=== PATIENT | male | born 1935 | race Hispanic/Latino ===

== ENCOUNTER 2017-10-02 08:19 | Outpatient (CLI) | payer MEDICARE ==
--- NOTE | 2017-10-02 15:08 | XRay Report ---
XRAY RIGHT HIP TWO VIEWS: 10/02/17 08:19:00 CLINICAL: Right hip pain. FINDINGS: No fracture or dislocation.Moderately severe osteoarthritis with complete loss of the medial and inferior joint space with acetabular eburnation and inferior and superior osteophytes. Increased density of the femoral head but no fracture. Similar but slightly less severe changes in the left hip. There is some flattening of the left femoral head. The pelvic bones are intact. The SI joints are normal. Pelvic surgical skin karla. Status post lower lumbar fusion. IMPRESSION: Moderately severe bilateral hip osteoarthritis, worse on the right than the left.
== END 2017-10-02 08:20 | disposition home or self-care (01) ==
LOC: SPVIMAG 08:19
PROVIDERS: ATTEND Orthopaedic Surgery Sports Medicine
DX: M16.0 Bilateral primary osteoarthritis of hip (principal); M43.26 Fusion of spine, lumbar region